=== PATIENT | male | born 1935 | race Caucasian/White ===

== ENCOUNTER 2017-07-02 16:52 | Inpatient (IN) | payer MEDICARE, OTHER ==
[~2017-07-02] VITALS: Ht 177.8 cm; Wt 93.0 kg
[2017-07-02 17:08] LABS: BASOPHILS % (AUTO) 0.5 % (0.0-5.0); EOSINOPHILS % (AUTO) 2.2 % (0.0-8.0); HEMATOCRIT 36.4 % (42-54); LYMPHOCYTES % (AUTO) 15.1 % (21.0-51.0); MEAN CORPUSCULAR HEMOGLOBIN 28.1 pg (27.0-33.0); MEAN CORPUSCULAR HGB CONC 32.9 g/dL (32.0-36.0); MEAN CORPUSCULAR VOLUME 85.6 fL (79-99); MONOCYTES % (AUTO) 6.7 % (3.0-13.0); NEUTROPHILS % (AUTO) 75.5 % (40.0-77.0); PLATELET COUNT (AUTO) 375 K/uL (130-400); RED BLOOD CELL COUNT(AUTO) 4.25 MIL/uL (4.50-6.20); RED CELL DISTRIBUTION WIDTH 14.7 % (11.0-15.5); WHITE BLOOD COUNT (AUTO) 16.2 K/uL (4.8-10.8)
[2017-07-02 17:25] LABS: CREATININE 1.3 mg/dL (0.5-1.5); POTASSIUM 3.5 mmol/L (3.5-5.1)
[2017-07-02 17:41] LABS: BILIRUBIN,TOTAL 0.5 mg/dL (0.2-1.0); TOTAL PROTEIN, SERUM 6.1 g/dL (6.0-8.3)
[2017-07-02 19:03] LABS: INR 1.1 (0.85-1.15); PARTIAL THROMBOPLASTIN TIME 26.6 SEC (26.3-35.5); PROTHROMBIN TIME 11.5 SEC (9.6-11.6)
[2017-07-02] MEDS ORDERED: ASPIRIN 81MG TAB.CHEW ONE (19:57)
[2017-07-02] MEDS ORDERED: NITROGLYCERIN 1GM/1 INCH PACKET TD ONE (21:47)
[2017-07-02] MEDS ORDERED: ENOXAPARIN SODIUM 40 MG/0.4 ML SYRINGE SQ ONE (22:14)
[2017-07-02 22:46] VITALS: BP 134/81
[2017-07-02] MEDS ORDERED: ACETAMINOPHEN 325 MG TAB PO PRN (23:00)
[2017-07-02] MEDS ORDERED: ONDANSETRON HCL 4 MG/2 ML VIAL IVP PRN (23:00)
[2017-07-02] MEDS: NITROGLYCERIN 30 GM TUBE TP SCH (23:00)
[2017-07-02 23:33] LABS: CREATINE KINASE MB 2.7 ng/mL (0.5-3.6); CREATINE KINASE, TOTAL 84 U/L (21-232); MYOGLOBIN 134 ng/mL (10-92); TROPONIN I < 0.04 ng/mL (0.00-0.06)
[2017-07-02] MEDS ORDERED: CEFTRIAXONE 1GM/D5W 50ML 50 ML IV SCH (23:45)
[2017-07-02] MEDS ORDERED: CEFTRIAXONE SODIUM 1 GM IVP SCH (23:45)
[2017-07-02 23:47] VITALS: BP 123/76
[2017-07-03 03:55] VITALS: BP 87/50
[2017-07-03] MEDS ORDERED: ONDANSETRON HCL MDV 20ML 2 MG/ML VIAL ONE (04:11)
[2017-07-03] MEDS: NITROGLYCERIN 30 GM TUBE TP SCH (05:00)
[2017-07-03 05:43] VITALS: BP 96/57
[2017-07-03 05:45] LABS: CREATINE KINASE MB 1.9 ng/mL (0.5-3.6); CREATINE KINASE, TOTAL 84 U/L (21-232); MYOGLOBIN 215 ng/mL (10-92); TROPONIN I < 0.04 ng/mL (0.00-0.06)
[2017-07-03 07:00] VITALS: BP 92/60
[2017-07-03] MEDS ORDERED: MECLIZINE HCL 25 MG TABLET PO PRN (08:30)
[2017-07-03] MEDS ORDERED: ONDANSETRON HCL MDV 20ML 2 MG/ML VIAL IVP PRN ×2 (08:45)
[2017-07-03] MEDS: FAMOTIDINE/PF 20 MG/2 ML VIAL IV SCH (08:46)
[2017-07-03] MEDS: ENOXAPARIN SODIUM 40 MG/0.4 ML SYRINGE SQ SCH (08:47)
[2017-07-03] MEDS: MECLIZINE HCL 25 MG TABLET PO SCH ×3 (08:47→20:06)
[2017-07-03 10:04] LABS: HEMATOCRIT 31.8 % (42-54); MEAN CORPUSCULAR HEMOGLOBIN 29.4 pg (27.0-33.0); MEAN CORPUSCULAR HGB CONC 34.4 g/dL (32.0-36.0); MEAN CORPUSCULAR VOLUME 85.5 fL (79-99); PLATELET COUNT (AUTO) 363 K/uL (130-400); RED BLOOD CELL COUNT(AUTO) 3.72 MIL/uL (4.50-6.20); RED CELL DISTRIBUTION WIDTH 14.3 % (11.0-15.5); WHITE BLOOD COUNT (AUTO) 19.5 K/uL (4.8-10.8)
[2017-07-03 11:00] VITALS: BP 112/64
[2017-07-03 11:02] LABS: CREATININE 1.7 mg/dL (0.5-1.5); POTASSIUM 4.3 mmol/L (3.5-5.1)
[2017-07-03 11:52] LABS: HEMATOCRIT 32.6 % (42-54); MEAN CORPUSCULAR HEMOGLOBIN 29.7 pg (27.0-33.0); MEAN CORPUSCULAR HGB CONC 34.1 g/dL (32.0-36.0); MEAN CORPUSCULAR VOLUME 86.9 fL (79-99); PLATELET COUNT (AUTO) 381 K/uL (130-400); RED BLOOD CELL COUNT(AUTO) 3.76 MIL/uL (4.50-6.20); RED CELL DISTRIBUTION WIDTH 14.5 % (11.0-15.5); WHITE BLOOD COUNT (AUTO) 22.7 K/uL (4.8-10.8)
[2017-07-03 13:00] LABS: BAND NEUTROPHILS % (MANUAL) 1 % (0-2); EOSINOPHILS % (MANUAL) 1 % (1-6); LYMPHOCYTES % (MANUAL) 12 % (22-44); MAN.DIFF COMMENT-IMPRESSION MANUAL DIFFERENTIAL; MONOCYTES % (MANUAL) 10 % (2-9); SEGMENTED NEUTROPHILS % 76 % (40-70)
[2017-07-03 13:01] LABS: PLATELET MORPHOLOGY COMMENT ADEQUATE
[2017-07-03 16:22] VITALS: BP 125/59
[2017-07-03 17:13] LABS: APPEARANCE,URINE Clear (CLEAR); BILIRUBIN,URINE Negative (NEGATIVE); COLOR,URINE Yellow (YELLOW); GLUCOSE, URINE (UA) Negative (NEGATIVE); KETONES,URINE Negative (NEGATIVE); LEUKOCYTE ESTERASE ,URINE Trace (NEGATIVE); NITRATE,URINE Negative (NEGATIVE); OCCULT BLOOD,URINE Negative (NEGATIVE); PROTEIN,URINE Negative (NEGATIVE)
[2017-07-03 17:34] LABS: BACTERIA,URINE Rare /HPF (None Seen); RBC,URINE None Seen /HPF (0-1); SQUAMOUS EPITHELIAL CELL,UR 0-2 /HPF (0-2); WBC,URINE 0-1 /HPF (0-1)
[2017-07-03 19:00] VITALS: BP 119/70
[2017-07-03] MEDS: CEFTRIAXONE SODIUM 1 GM IVP SCH (20:05)
[2017-07-03] MEDS: ATORVASTATIN CALCIUM 20 MG TABLET PO SCH (20:06)
[2017-07-04] VITALS: BP 109/73
[2017-07-04 04:00] VITALS: BP 122/62
[2017-07-04] MEDS: FAMOTIDINE/PF 20 MG/2 ML VIAL IV SCH (07:19)
[2017-07-04] MEDS: MECLIZINE HCL 25 MG TABLET PO SCH ×2 (07:19→19:37)
[2017-07-04] MEDS: ENOXAPARIN SODIUM 40 MG/0.4 ML SYRINGE SQ SCH (07:20)
[2017-07-04] MEDS: ASPIRIN 81MG TAB.CHEW PO SCH (07:20)
[2017-07-04] MEDS ORDERED: DILT240C94 PO (07:30)
[2017-07-04] MEDS ORDERED: BENA20TA3 PO (07:30)
[2017-07-04] MEDS ORDERED: LEVO100T12 PO (07:30)
[2017-07-04] MEDS ORDERED: ZONI25CA3 PO (07:30)
[2017-07-04] MEDS ORDERED: DULO60CA63 PO (07:30)
[2017-07-04] MEDS ORDERED: TRAZ-144 PO ×2 (07:30)
[2017-07-04 07:40] VITALS: BP 131/72
[2017-07-04] MEDS ORDERED: NITROGLYCERIN 0.4 MG SL TAB SL ONE (09:07)
[2017-07-04] MEDS ORDERED: NITROGLYCERIN 0.4 MG SL TAB SL PRN (09:15)
[2017-07-04 09:42] LABS: HEMATOCRIT 27.6 % (42-54); MEAN CORPUSCULAR HEMOGLOBIN 28.2 pg (27.0-33.0); MEAN CORPUSCULAR HGB CONC 32.7 g/dL (32.0-36.0); MEAN CORPUSCULAR VOLUME 86.3 fL (79-99); PLATELET COUNT (AUTO) 299 K/uL (130-400); RED CELL DISTRIBUTION WIDTH 14.3 % (11.0-15.5); WHITE BLOOD COUNT (AUTO) 15.9 K/uL (4.8-10.8)
[2017-07-04 09:57] LABS: CREATININE 1.3 mg/dL (0.5-1.5); POTASSIUM 4.1 mmol/L (3.5-5.1)
[2017-07-04 10:02] LABS: ALBUMIN 2.7 g/dL (3.5-5.0); BILIRUBIN,TOTAL 0.4 mg/dL (0.2-1.0); TOTAL PROTEIN, SERUM 5.5 g/dL (6.0-8.3)
[2017-07-04 11:30] VITALS: BP 112/55
[2017-07-04] MEDS ORDERED: DILTIAZEM HCL 120 MG CAP.SR.24H PO SCH (12:30)
[2017-07-04] MEDS ORDERED: LEVOTHYROXINE 100 MCG TABLET PO SCH (12:30)
[2017-07-04] MEDS: DULOXETINE HCL 30 MG CAP PO SCH ×2 (12:37→20:03)
[2017-07-04 16:41] VITALS: BP 121/54
[2017-07-04] MEDS: LEVOTHYROXINE 100 MCG TABLET PO SCH (19:36)
[2017-07-04] MEDS: CEFTRIAXONE SODIUM 1 GM IVP SCH (20:02)
[2017-07-04] MEDS: ATORVASTATIN CALCIUM 20 MG TABLET PO SCH (20:02)
[2017-07-04] MEDS: TRAZODONE HCL 50 MG TAB PO PRN (20:07)
[2017-07-04 23:20] VITALS: BP 125/98
[2017-07-05 03:35] VITALS: BP 124/58
[2017-07-05 04:41] LABS: HEMATOCRIT 25.5 % (42-54); MEAN CORPUSCULAR HEMOGLOBIN 29.5 pg (27.0-33.0); MEAN CORPUSCULAR HGB CONC 33.8 g/dL (32.0-36.0); MEAN CORPUSCULAR VOLUME 87.1 fL (79-99); PLATELET COUNT (AUTO) 300 K/uL (130-400); RED BLOOD CELL COUNT(AUTO) 2.92 MIL/uL (4.50-6.20); RED CELL DISTRIBUTION WIDTH 14.5 % (11.0-15.5); WHITE BLOOD COUNT (AUTO) 15.8 K/uL (4.8-10.8)
[2017-07-05 04:50] LABS: CREATININE 1.3 mg/dL (0.5-1.5); POTASSIUM 3.8 mmol/L (3.5-5.1)
[2017-07-05 07:38] VITALS: BP 125/62
[2017-07-05] MEDS ORDERED: FAMOTIDINE 20MG TAB 20 MG TAB PO SCH (09:00)
[2017-07-05] MEDS: MECLIZINE HCL 25 MG TABLET PO SCH ×2 (09:00→20:57)
[2017-07-05] MEDS: DULOXETINE HCL 30 MG CAP PO SCH ×2 (09:50→20:56)
[2017-07-05] MEDS: DILTIAZEM HCL 120 MG CAP.SR.24H PO SCH (09:51)
[2017-07-05] MEDS: ASPIRIN 81MG TAB.CHEW PO SCH (09:51)
[2017-07-05] MEDS: LEVOTHYROXINE 100 MCG TABLET PO SCH (09:51)
[2017-07-05] MEDS: ENOXAPARIN SODIUM 40 MG/0.4 ML SYRINGE SQ SCH (09:52)
[2017-07-05 11:18] VITALS: BP 112/50
[2017-07-05] MEDS: PANTOPRAZOLE SODIUM 40 MG TABLET.DR PO SCH (11:29)
[2017-07-05 16:20] VITALS: BP 123/56
[2017-07-05 19:44] VITALS: BP 124/61
[2017-07-05] MEDS: CEFTRIAXONE SODIUM 1 GM IVP SCH (20:56)
[2017-07-05] MEDS: TRAZODONE HCL 50 MG TAB PO PRN (20:56)
[2017-07-05] MEDS: ATORVASTATIN CALCIUM 20 MG TABLET PO SCH (20:56)
[2017-07-05 23:34] VITALS: BP 123/50
[2017-07-06] VITALS (7 sets, daily range): BP systolic 108–139; BP diastolic 57–67
[2017-07-06 04:58] LABS: HEMATOCRIT 22.9 % (42-54); MEAN CORPUSCULAR HEMOGLOBIN 28.5 pg (27.0-33.0); MEAN CORPUSCULAR HGB CONC 32.4 g/dL (32.0-36.0); MEAN CORPUSCULAR VOLUME 88.1 fL (79-99); PLATELET COUNT (AUTO) 273 K/uL (130-400); RED CELL DISTRIBUTION WIDTH 14.6 % (11.0-15.5); WHITE BLOOD COUNT (AUTO) 13.7 K/uL (4.8-10.8)
[2017-07-06 05:06] LABS: CREATININE 1.2 mg/dL (0.5-1.5)
[2017-07-06 05:14] LABS: BAND NEUTROPHILS % (MANUAL) 3 % (0-2); LYMPHOCYTES % (MANUAL) 19 % (22-44); MAN.DIFF COMMENT-IMPRESSION MANUAL DIFFERENTIAL; MONOCYTES % (MANUAL) 8 % (2-9); PLATELET MORPHOLOGY COMMENT ADEQUATE; SEGMENTED NEUTROPHILS % 70 % (40-70)
[2017-07-06] MEDS: LEVOTHYROXINE 100 MCG TABLET PO SCH (05:45)
[2017-07-06] MEDS: MECLIZINE HCL 25 MG TABLET PO SCH ×2 (09:45→20:54)
[2017-07-06] MEDS: ASPIRIN 81MG TAB.CHEW PO SCH (09:45)
[2017-07-06] MEDS: DULOXETINE HCL 30 MG CAP PO SCH ×2 (09:45→20:54)
[2017-07-06] MEDS: DILTIAZEM HCL 120 MG CAP.SR.24H PO SCH (09:45)
[2017-07-06] MEDS: PANTOPRAZOLE SODIUM 40 MG TABLET.DR PO SCH (09:45)
[2017-07-06] MEDS: ATORVASTATIN CALCIUM 20 MG TABLET PO SCH (20:54)
[2017-07-06] MEDS: CEFTRIAXONE SODIUM 1 GM IVP SCH (20:54)
[2017-07-07] VITALS (21 sets, daily range): BP systolic 108–145; BP diastolic 58–85
[2017-07-07 04:56] LABS: MEAN CORPUSCULAR HEMOGLOBIN 29.7 pg (27.0-33.0); MEAN CORPUSCULAR HGB CONC 33.6 g/dL (32.0-36.0); MEAN CORPUSCULAR VOLUME 88.5 fL (79-99); PLATELET COUNT (AUTO) 304 K/uL (130-400); RED BLOOD CELL COUNT(AUTO) 2.35 MIL/uL (4.50-6.20); RED CELL DISTRIBUTION WIDTH 14.7 % (11.0-15.5); WHITE BLOOD COUNT (AUTO) 17.1 K/uL (4.8-10.8)
[2017-07-07 04:58] LABS: CREATININE 1.2 mg/dL (0.5-1.5)
[2017-07-07 05:35] LABS: HEMATOCRIT 20.8 % (42-54)
[2017-07-07 05:47] LABS: BASOPHILS % (MANUAL) 1 % (0-2); EOSINOPHILS % (MANUAL) 3 % (1-6); LYMPHOCYTES % (MANUAL) 13 % (22-44); MONOCYTES % (MANUAL) 4 % (2-9); SEGMENTED NEUTROPHILS % 79 % (40-70)
[2017-07-07 05:48] LABS: MAN.DIFF COMMENT-IMPRESSION MANUAL DIFFERENTIAL; PLATELET MORPHOLOGY COMMENT ADEQUATE
[2017-07-07] MEDS: LEVOTHYROXINE 100 MCG TABLET PO SCH (06:11)
[2017-07-07] MEDS: PANTOPRAZOLE SODIUM 40 MG TABLET.DR PO SCH (06:11)
[2017-07-07] MEDS: DILTIAZEM HCL 120 MG CAP.SR.24H PO SCH (17:13)
[2017-07-07] MEDS: DULOXETINE HCL 30 MG CAP PO SCH ×2 (17:13→20:56)
[2017-07-07] MEDS: MECLIZINE HCL 25 MG TABLET PO SCH ×2 (17:13→20:56)
[2017-07-07] MEDS: ATORVASTATIN CALCIUM 20 MG TABLET PO SCH (20:55)
[2017-07-07] MEDS: CEFTRIAXONE SODIUM 1 GM IVP SCH (20:56)
[2017-07-07] MEDS: TRAZODONE HCL 50 MG TAB PO PRN (21:03)
[2017-07-08 03:48] VITALS: BP 124/66
[2017-07-08 04:27] LABS: MEAN CORPUSCULAR HEMOGLOBIN 29.8 pg (27.0-33.0); MEAN CORPUSCULAR HGB CONC 33.8 g/dL (32.0-36.0); MEAN CORPUSCULAR VOLUME 88.1 fL (79-99); PLATELET COUNT (AUTO) 311 K/uL (130-400); RED BLOOD CELL COUNT(AUTO) 2.25 MIL/uL (4.50-6.20); RED CELL DISTRIBUTION WIDTH 15.6 % (11.0-15.5); WHITE BLOOD COUNT (AUTO) 14.7 K/uL (4.8-10.8)
[2017-07-08 04:35] LABS: HEMATOCRIT 19.9 % (42-54)
[2017-07-08 04:37] LABS: CREATININE 1.1 mg/dL (0.5-1.5); MAGNESIUM 1.9 mg/dL (1.80-2.40); POTASSIUM 3.7 mmol/L (3.5-5.1)
[2017-07-08] MEDS ORDERED: SODIUM CHLORIDE 0.9% 250 ML IV ONE (05:28)
[2017-07-08] MEDS: PANTOPRAZOLE SODIUM 40 MG TABLET.DR PO SCH (06:04)
[2017-07-08] MEDS: LEVOTHYROXINE 100 MCG TABLET PO SCH (06:04)
[2017-07-08 07:45] VITALS: BP 130/69
[2017-07-08] MEDS: DULOXETINE HCL 30 MG CAP PO SCH (07:51)
[2017-07-08] MEDS: DILTIAZEM HCL 120 MG CAP.SR.24H PO SCH (07:51)
[2017-07-08] MEDS: MECLIZINE HCL 25 MG TABLET PO SCH (07:51)
[2017-07-08 11:35] VITALS: BP 135/71
[2017-07-08 14:52] LABS: BASOPHILS % (AUTO) 0.4 % (0.0-5.0); EOSINOPHILS % (AUTO) 4.5 % (0.0-8.0); HEMATOCRIT 26.7 % (42-54); LYMPHOCYTES % (AUTO) 13.2 % (21.0-51.0); MEAN CORPUSCULAR HEMOGLOBIN 29.2 pg (27.0-33.0); MEAN CORPUSCULAR HGB CONC 33.1 g/dL (32.0-36.0); MEAN CORPUSCULAR VOLUME 88.3 fL (79-99); MONOCYTES % (AUTO) 5.5 % (3.0-13.0); NEUTROPHILS % (AUTO) 76.4 % (40.0-77.0); NUCLEATED RED BLOOD CELLS 0.1 % (0.0-0.19); PLATELET COUNT (AUTO) 336 K/uL (130-400); RED BLOOD CELL COUNT(AUTO) 3.02 MIL/uL (4.50-6.20); RED CELL DISTRIBUTION WIDTH 15.6 % (11.0-15.5); WHITE BLOOD COUNT (AUTO) 15.3 K/uL (4.8-10.8)
[2017-07-08 16:26] VITALS: BP 129/67
== END 2017-07-08 17:40 | disposition home or self-care (01) | DRG 377 ==
LOC: EDH 16:52 → EDHIP 19:10 → 2AH 22:09
PROVIDERS: ADMIT Internal Medicine Nephrology; ATTEND Internal Medicine Nephrology
PROC: 0DB98ZX Excision of Duodenum, Via Natural or Artificial Opening Endoscopic, Diagnostic (ICD-10-PCS; principal; 2017-07-07)
PROC: 0W3P8ZZ Control Bleeding in Gastrointestinal Tract, Via Natural or Artificial Opening Endoscopic (ICD-10-PCS; 2017-07-07)
PROC: 30233N1 Transfusion of Nonautologous Red Blood Cells into Peripheral Vein, Percutaneous Approach (ICD-10-PCS; 2017-07-07)
DX: K31.82 Dieulafoy lesion (hemorrhagic) of stomach and duodenum (principal); N17.0 Acute kidney failure with tubular necrosis; G91.2 (Idiopathic) normal pressure hydrocephalus; I24.9 Acute ischemic heart disease, unspecified; D62 Acute posthemorrhagic anemia; I42.9 Cardiomyopathy, unspecified; K25.4 Chronic or unspecified gastric ulcer with hemorrhage; D72.829 Elevated white blood cell count, unspecified; E03.9 Hypothyroidism, unspecified; E78.5 Hyperlipidemia, unspecified; F32.9 Major depressive disorder, single episode, unspecified; I10 Essential (primary) hypertension; I25.10 Atherosclerotic heart disease of native coronary artery without angina pectoris; K80.20 Calculus of gallbladder without cholecystitis without obstruction; N40.0 Benign prostatic hyperplasia without lower urinary tract symptoms; K25.9 Gastric ulcer, unspecified as acute or chronic, without hemorrhage or perforation; Z72.0 Tobacco use; Z79.82 Long term (current) use of aspirin; Z79.899 Other long term (current) drug therapy; Z85.820 Personal history of malignant melanoma of skin; Z91.81 History of falling; Z95.5 Presence of coronary angioplasty implant and graft; Z96.612 Presence of left artificial shoulder joint; Z88.8 Allergy status to other drugs, medicaments and biological substances
CPT/HCPCS: 36415; 71045; 71250; 76700; 76775; 78226; 80048; 80053; 81001; 82150; 82270; 82550; 82553; 82948; 83690; 83735; 83874; 84484; 85025; 85027; 85610; 85730; 86850; 86900; 86901; 86922; 87040; 88305; 93005; 93306; A4218; A9537; J0696; J1650; J3490; J7030; P9016

== ENCOUNTER 2017-07-23 18:48 | Inpatient (IN) | payer OTHER ==
[~2017-07-23] VITALS: Ht 177.8 cm; Wt 94.7 kg
[~2017-07-23 18:48] MED LIST: BENA20TA10 PO; DILT240C94 PO; DULO60CA63 PO; LEVO100T12 PO; TRAZ-185 PO; ZONI25CA3 PO
[2017-07-23] MEDS ORDERED: DiphenhydrAMINE HCL 50 MG/ML VIAL ONE (19:01)
[2017-07-23] MEDS ORDERED: METHYLPREDNISOLONE SOD SUCC 125MG/2ML VIAL ONE (19:01)
[2017-07-23 19:08] LABS: BASOPHILS % (AUTO) 0.7 % (0.0-5.0); EOSINOPHILS % (AUTO) 4.6 % (0.0-8.0); HEMATOCRIT 28.6 % (42-54); MEAN CORPUSCULAR HEMOGLOBIN 29.1 pg (27.0-33.0); MEAN CORPUSCULAR HGB CONC 35.5 g/dL (32.0-36.0); MEAN CORPUSCULAR VOLUME 82.1 fL (79-99); MONOCYTES % (AUTO) 9.6 % (3.0-13.0); NEUTROPHILS % (AUTO) 64.1 % (40.0-77.0); PLATELET COUNT (AUTO) 525 K/uL (130-400); RED BLOOD CELL COUNT(AUTO) 3.49 MIL/uL (4.50-6.20); RED CELL DISTRIBUTION WIDTH 18.4 % (11.0-15.5); WHITE BLOOD COUNT (AUTO) 12.9 K/uL (4.8-10.8)
[2017-07-23] MEDS ORDERED: FAMOTIDINE 20MG TAB 20 MG TAB ONE (19:08)
[2017-07-23] MEDS ORDERED: HEPARIN SODIUM 1000UNIT/ML 10ML VIAL ONE (19:19)
[2017-07-23] MEDS ORDERED: NITROGLYCERIN 5 MG/ML 10 ML VIAL IV ONE (19:19)
[2017-07-23] MEDS ORDERED: IOPAMIDOL-370 100 ML VIAL IV ONE ×2 (19:19→20:35)
[2017-07-23] MEDS ORDERED: LIDOCAINE HCL 2% 20ML ONE (19:20)
[2017-07-23] MEDS ORDERED: ISOVUE-370 50ML VIAL IV ONE (19:20)
[2017-07-23] MEDS ORDERED: DOPAMINE HCL 400 MG/D5%-WATER 0 ML IV ONE (19:20)
[2017-07-23] MEDS ORDERED: ATROPINE SULFATE 0.1 MG/ML 10 ML SYG IVP ONE (19:20)
[2017-07-23 19:24] LABS: CREATININE 1.2 mg/dL (0.5-1.5); POTASSIUM 3.5 mmol/L (3.5-5.1)
[2017-07-23 19:37] LABS: ALBUMIN 3.5 g/dL (3.5-5.0); BILIRUBIN,TOTAL 0.4 mg/dL (0.2-1.0); CREATINE KINASE MB 2.1 ng/mL (0.5-3.6); TOTAL PROTEIN, SERUM 7.1 g/dL (6.0-8.3)
[2017-07-23 19:56] LABS: INR 1.06 (0.85-1.15); PARTIAL THROMBOPLASTIN TIME 22.3 SEC (26.3-35.5); PROTHROMBIN TIME 10.9 SEC (9.6-11.6)
[2017-07-23] MEDS ORDERED: CLOPIDOGREL BISULFATE 300 MG TAB ONE (20:09)
[2017-07-23] MEDS ORDERED: NITROGLYCERIN 0.4 MG SL TAB SL ONE (20:33)
[2017-07-23] MEDS ORDERED: MORPHINE SULFATE 4 MG/1ML SYG ONE (21:01)
[2017-07-23] MEDS ORDERED: CLOP75TA14 PO (21:12)
[2017-07-23] MEDS ORDERED: ATOR20TA65 PO (21:12)
[2017-07-23] MEDS ORDERED: METO25TA6 PO (21:12)
[2017-07-23] MEDS ORDERED: MORPHINE SULFATE 4 MG/1ML SYG IVP SCH (21:15)
[2017-07-23] MEDS ORDERED: TEMAZEPAM 30 MG CAP PO PRN (21:15)
[2017-07-23] MEDS ORDERED: ACETAMINOPHEN-CODEINE 300/30MG TAB PO PRN ×2 (21:15)
[2017-07-23] MEDS ORDERED: ONDANSETRON HCL MDV 20ML 2 MG/ML VIAL IVP PRN (21:15)
[2017-07-23] MEDS ORDERED: ONDANSETRON HCL MDV 20ML 2 MG/ML VIAL IVP SCH (21:15)
[2017-07-23] MEDS ORDERED: MORPHINE SULFATE 5 MG/ML VIAL IVP SCH (21:15)
[2017-07-23] MEDS ORDERED: ESOM20CA31 PO (21:52)
[2017-07-23 22:00] VITALS: BP 128/70
[2017-07-23 22:15] VITALS: BP 136/71
[2017-07-23 22:30] VITALS: BP 114/66
[2017-07-23 22:45] VITALS: BP 135/66
[2017-07-23 23:00] VITALS: BP 127/82
[2017-07-23 23:05] VITALS: BP 136/71
[2017-07-23 23:28] LABS: HEMATOCRIT 29.4 % (42-54); MEAN CORPUSCULAR HEMOGLOBIN 26.5 pg (27.0-33.0); MEAN CORPUSCULAR HGB CONC 32.3 g/dL (32.0-36.0); MEAN CORPUSCULAR VOLUME 81.8 fL (79-99); PLATELET COUNT (AUTO) 406 K/uL (130-400); RED CELL DISTRIBUTION WIDTH 17.9 % (11.0-15.5); WHITE BLOOD COUNT (AUTO) 15.9 K/uL (4.8-10.8)
[2017-07-24] VITALS (38 sets, daily range): BP systolic 124–166; BP diastolic 61–115
[2017-07-24] MEDS ORDERED: ATROPINE SULFATE 0.1 MG/ML 10 ML SYG IVP ONE (02:41)
[2017-07-24 05:02] LABS: HEMATOCRIT 30.6 % (42-54); MEAN CORPUSCULAR HEMOGLOBIN 26.5 pg (27.0-33.0); MEAN CORPUSCULAR HGB CONC 32.4 g/dL (32.0-36.0); MEAN CORPUSCULAR VOLUME 81.8 fL (79-99); PLATELET COUNT (AUTO) 462 K/uL (130-400); RED BLOOD CELL COUNT(AUTO) 3.74 MIL/uL (4.50-6.20); RED CELL DISTRIBUTION WIDTH 18.5 % (11.0-15.5); WHITE BLOOD COUNT (AUTO) 14.7 K/uL (4.8-10.8)
[2017-07-24 05:13] LABS: CREATININE 1.1 mg/dL (0.5-1.5); POTASSIUM 4.6 mmol/L (3.5-5.1)
[2017-07-24] MEDS ORDERED: TRAZODONE HCL 50 MG TAB PO PRN (08:00)
[2017-07-24] MEDS: DULOXETINE HCL 30 MG CAP PO SCH ×2 (08:36→21:19)
[2017-07-24] MEDS: PANTOPRAZOLE SODIUM 40 MG TABLET.DR PO SCH (08:36)
[2017-07-24] MEDS: ASPIRIN 81MG TAB.CHEW PO SCH (08:36)
[2017-07-24] MEDS: CLOPIDOGREL BISULFATE 75 MG TAB PO SCH (08:36)
[2017-07-24] MEDS: METOPROLOL TARTRATE 50 MG TAB PO SCH ×2 (08:36→21:19)
[2017-07-24] MEDS: ZONISAMIDE 25 MG PO SCH ×3 (09:00→21:00)
[2017-07-24] MEDS ORDERED: METOPROLOL TARTRATE 25 MG TAB PO SCH (09:00)
[2017-07-24] MEDS ORDERED: ATORVASTATIN CALCIUM 20 MG TABLET PO SCH (21:00)
[2017-07-25 03:47] VITALS: BP 136/77
[2017-07-25 04:57] LABS: HEMATOCRIT 27.8 % (42-54); MEAN CORPUSCULAR HEMOGLOBIN 27.3 pg (27.0-33.0); MEAN CORPUSCULAR HGB CONC 33.6 g/dL (32.0-36.0); MEAN CORPUSCULAR VOLUME 81.2 fL (79-99); PLATELET COUNT (AUTO) 493 K/uL (130-400); RED BLOOD CELL COUNT(AUTO) 3.43 MIL/uL (4.50-6.20); RED CELL DISTRIBUTION WIDTH 18.5 % (11.0-15.5); WHITE BLOOD COUNT (AUTO) 26.6 K/uL (4.8-10.8)
[2017-07-25 05:14] LABS: CREATININE 1.2 mg/dL (0.5-1.5); POTASSIUM 3.7 mmol/L (3.5-5.1)
[2017-07-25] MEDS ORDERED: LEVOTHYROXINE 100 MCG TABLET PO SCH (06:30)
[2017-07-25 07:00] VITALS: BP 141/74
[2017-07-25] MEDS: METOPROLOL TARTRATE 50 MG TAB PO SCH (08:42)
[2017-07-25] MEDS: DULOXETINE HCL 30 MG CAP PO SCH (08:42)
[2017-07-25] MEDS: ASPIRIN 81MG TAB.CHEW PO SCH (08:42)
[2017-07-25] MEDS: CLOPIDOGREL BISULFATE 75 MG TAB PO SCH (08:42)
[2017-07-25] MEDS: PANTOPRAZOLE SODIUM 40 MG TABLET.DR PO SCH (08:42)
[2017-07-25] MEDS: ZONISAMIDE 25 MG PO SCH (08:46)
[2017-07-25] MEDS ORDERED: ASPI-1005 PO (10:23)
[2017-07-25 10:55] LABS: APPEARANCE,URINE CLEAR (CLEAR); BILIRUBIN,URINE NEGATIVE (NEGATIVE); COLOR,URINE YELLOW (YELLOW); GLUCOSE, URINE (UA) NEGATIVE (NEGATIVE); KETONES,URINE NEGATIVE (NEGATIVE); LEUKOCYTE ESTERASE ,URINE TRACE (NEGATIVE); NITRATE,URINE NEGATIVE (NEGATIVE); OCCULT BLOOD,URINE NEGATIVE (NEGATIVE); PROTEIN,URINE NEGATIVE (NEGATIVE); UROBILINOGEN,URINE 0.2 mg/dL (0.2-1.0)
[2017-07-25 11:00] VITALS: BP 124/65
[2017-07-25 11:19] LABS: BACTERIA,URINE Rare /HPF (None Seen); MUCUS,URINE Few LPF (None Seen); RBC,URINE None Seen /HPF (0-1); SQUAMOUS EPITHELIAL CELL,UR Few /HPF (0-2); WBC,URINE 0-1 /HPF (0-1)
[2017-07-26] MEDS ORDERED: BENAZEPRIL HCL 10 MG TABLET PO SCH (09:00)
== END 2017-07-25 13:30 | disposition home or self-care (01) | DRG 246 ==
LOC: EDH 18:48 → EDHIP 19:00 → 2CH 21:51 → 2AH 07-24 14:30
PROVIDERS: ADMIT Internal Medicine; ATTEND Internal Medicine
PROC: 027034Z Dilation of Coronary Artery, One Artery with Drug-eluting Intraluminal Device, Percutaneous Approach (ICD-10-PCS; principal; 2017-07-23)
PROC: B2151ZZ Fluoroscopy of Left Heart using Low Osmolar Contrast (ICD-10-PCS; 2017-07-23)
PROC: B2111ZZ Fluoroscopy of Multiple Coronary Arteries using Low Osmolar Contrast (ICD-10-PCS; 2017-07-23)
PROC: 4A023N7 Measurement of Cardiac Sampling and Pressure, Left Heart, Percutaneous Approach (ICD-10-PCS; 2017-07-23)
DX: I21.19 ST elevation (STEMI) myocardial infarction involving other coronary artery of inferior wall (principal); I50.33 Acute on chronic diastolic (congestive) heart failure; E03.9 Hypothyroidism, unspecified; E78.5 Hyperlipidemia, unspecified; F32.9 Major depressive disorder, single episode, unspecified; I10 Essential (primary) hypertension; I25.10 Atherosclerotic heart disease of native coronary artery without angina pectoris; Z96.612 Presence of left artificial shoulder joint; I25.2 Old myocardial infarction; Z79.02 Long term (current) use of antithrombotics/antiplatelets; Z79.82 Long term (current) use of aspirin; Z79.899 Other long term (current) drug therapy; Z91.041 Radiographic dye allergy status; Z85.820 Personal history of malignant melanoma of skin; Z88.8 Allergy status to other drugs, medicaments and biological substances; Z82.49 Family history of ischemic heart disease and other diseases of the circulatory system
CPT/HCPCS: 36415; 71045; 71046; 80048; 80053; 80061; 81001; 82550; 82553; 83874; 84484; 85025; 85027; 85347; 85610; 85730; 86850; 86900; 86901; 93005; 93306; 93458; 94760; C1725; C1769; C1887; C1894; C9600; C9606; J0461; J1200; J1265; J1644; J2270; J2930; J3490; Q9967

== ENCOUNTER 2018-01-03 04:08 | Inpatient (IN) | payer OTHER ==
[~2018-01-03] VITALS: Ht 177.8 cm; Wt 92.9 kg
[~2018-01-03 04:08] MED LIST changes: +ASPI-1005 PO; +ATOR20TA65 PO; +CLOP75TA14 PO; -DILT240C94 PO; +ESOM20CA31 PO; +METO25TA6 PO
[2018-01-03] MEDS ORDERED: NITROGLYCERIN 1GM/1 INCH PACKET TD ONE (04:35)
[2018-01-03 04:52] LABS: BASOPHILS % (AUTO) 0.4 % (0.0-5.0); EOSINOPHILS % (AUTO) 5.5 % (0.0-8.0); HEMATOCRIT 35.2 % (42-54); LYMPHOCYTES % (AUTO) 9.3 % (21.0-51.0); MEAN CORPUSCULAR HEMOGLOBIN 20.6 pg (27.0-33.0); MEAN CORPUSCULAR HGB CONC 30.1 g/dL (32.0-36.0); MEAN CORPUSCULAR VOLUME 68.6 fL (79-99); MONOCYTES % (AUTO) 6.4 % (3.0-13.0); NEUTROPHILS % (AUTO) 78.4 % (40.0-77.0); NUCLEATED RED BLOOD CELLS 0.1 % (0.0-0.19); PLATELET COUNT (AUTO) 263 K/uL (130-400); RED BLOOD CELL COUNT(AUTO) 5.13 MIL/uL (4.50-6.20); RED CELL DISTRIBUTION WIDTH 22.3 % (11.0-15.5); WHITE BLOOD COUNT (AUTO) 13.8 K/uL (4.8-10.8)
[2018-01-03 05:01] LABS: CREATININE 1.3 mg/dL (0.5-1.5)
[2018-01-03 05:06] LABS: INR 1.16 (0.85-1.15); PARTIAL THROMBOPLASTIN TIME 25.8 SEC (26.3-35.5); PROTHROMBIN TIME 12.1 SEC (9.6-11.6)
[2018-01-03 05:17] LABS: BILIRUBIN,TOTAL 0.5 mg/dL (0.2-1.0); CREATINE KINASE MB 2.8 ng/mL (0.5-3.6); TOTAL PROTEIN, SERUM 6.4 g/dL (6.0-8.3)
[2018-01-03 08:00] VITALS: BP 145/81
[2018-01-03] MEDS: NITROGLYCERIN 1GM/1 INCH PACKET TD SCH ×2 (08:15→16:32)
[2018-01-03] MEDS ORDERED: MORPHINE SULFATE 2 MG/ML 1ML SYG IV PRN (08:15)
[2018-01-03] MEDS ORDERED: TRAZODONE HCL 50 MG TAB PO PRN (08:15)
[2018-01-03] MEDS ORDERED: CLOTRIMAZOLE 30 GM CREAM.GM. TP SCH (08:15)
[2018-01-03] MEDS: DULOXETINE HCL 30 MG CAP PO SCH ×2 (08:43→19:55)
[2018-01-03] MEDS: ASPIRIN 81MG TAB.CHEW PO SCH (08:43)
[2018-01-03] MEDS: PANTOPRAZOLE SODIUM 40 MG TABLET.DR PO SCH (08:43)
[2018-01-03] MEDS: METOPROLOL TARTRATE 25 MG TAB PO SCH ×2 (08:43→19:57)
[2018-01-03] MEDS: CLOPIDOGREL BISULFATE 75 MG TAB PO SCH (08:43)
[2018-01-03] MEDS: Zonisamide 25 MG PO SCH ×3 (08:44→19:56)
[2018-01-03] MEDS: SODIUM CHLORIDE 0.9% 1000ML 1,000 ML IV SCH ×2 (08:44→19:56)
[2018-01-03] MEDS: ENOXAPARIN SODIUM 40 MG/0.4 ML SYRINGE SQ SCH ×2 (08:44→19:57)
[2018-01-03 11:16] LABS: APPEARANCE,URINE Clear (CLEAR); BILIRUBIN,URINE Negative (NEGATIVE); COLOR,URINE Yellow (YELLOW); GLUCOSE, URINE (UA) 250 mg/dL (NEGATIVE); KETONES,URINE Negative (NEGATIVE); LEUKOCYTE ESTERASE ,URINE Negative (NEGATIVE); NITRATE,URINE Negative (NEGATIVE); OCCULT BLOOD,URINE Negative (NEGATIVE); PROTEIN,URINE Negative (NEGATIVE)
[2018-01-03 11:49] LABS: BACTERIA,URINE Rare /HPF (None Seen); RBC,URINE 0-1 /HPF (0-1); SQUAMOUS EPITHELIAL CELL,UR 0-2 /HPF (0-2); WBC,URINE None Seen /HPF (0-1)
[2018-01-03 12:00] VITALS: BP 142/80
[2018-01-03] MEDS ORDERED: ACETAMINOPHEN EXTRA STRENGTH 500 MG TABLET PO PRN (13:45)
[2018-01-03] MEDS ORDERED: BUTALB/ACETAMINOPHEN/CAFFEINE 1 EACH TABLET PO PRN (13:45)
[2018-01-03 16:00] VITALS: BP 132/59
[2018-01-03] MEDS ORDERED: GABA-531 PO (16:39)
[2018-01-03 19:00] VITALS: BP 153/90
[2018-01-03] MEDS: ATORVASTATIN CALCIUM 20 MG TABLET PO SCH (19:55)
[2018-01-03] MEDS: GABAPENTIN 300 MG CAPSULE PO SCH (19:55)
[2018-01-04] VITALS (7 sets, daily range): BP systolic 129–145; BP diastolic 72–90
[2018-01-04] MEDS: NITROGLYCERIN 1GM/1 INCH PACKET TD SCH ×3 (00:43→23:58)
[2018-01-04 05:18] LABS: BASOPHILS % (AUTO) 0.6 % (0.0-5.0); EOSINOPHILS % (AUTO) 7.4 % (0.0-8.0); HEMATOCRIT 32.8 % (42-54); LYMPHOCYTES % (AUTO) 10.7 % (21.0-51.0); MEAN CORPUSCULAR HEMOGLOBIN 21.2 pg (27.0-33.0); MEAN CORPUSCULAR HGB CONC 31.1 g/dL (32.0-36.0); MEAN CORPUSCULAR VOLUME 68.3 fL (79-99); MONOCYTES % (AUTO) 5.7 % (3.0-13.0); NEUTROPHILS % (AUTO) 75.6 % (40.0-77.0); PLATELET COUNT (AUTO) 277 K/uL (130-400); RED BLOOD CELL COUNT(AUTO) 4.81 MIL/uL (4.50-6.20); RED CELL DISTRIBUTION WIDTH 22.4 % (11.0-15.5); WHITE BLOOD COUNT (AUTO) 13.8 K/uL (4.8-10.8)
[2018-01-04 05:25] LABS: HEMOGLOBIN A1C 7.9 % (4.0-6.0)
[2018-01-04 05:31] LABS: ALBUMIN 2.9 g/dL (3.5-5.0); BILIRUBIN,DIRECT 0.2 mg/dL (0.0-0.3); BILIRUBIN,TOTAL 0.7 mg/dL (0.2-1.0); CREATININE 1.2 mg/dL (0.5-1.5); MAGNESIUM 1.9 mg/dL (1.80-2.40); POTASSIUM 3.8 mmol/L (3.5-5.1)
[2018-01-04 05:33] LABS: % IRON SATURATION 6.6 % (30-44)
[2018-01-04 05:35] LABS: B-TYPE NATRIURETIC PEPTIDE 145 pg/mL (0-100)
[2018-01-04] MEDS: LEVOTHYROXINE 100 MCG TABLET PO SCH (05:45)
[2018-01-04] MEDS: Zonisamide 25 MG PO SCH ×3 (09:00→20:34)
[2018-01-04] MEDS: ENOXAPARIN SODIUM 40 MG/0.4 ML SYRINGE SQ SCH ×2 (09:06→20:34)
[2018-01-04] MEDS: ASPIRIN 81MG TAB.CHEW PO SCH (09:07)
[2018-01-04] MEDS: GABAPENTIN 300 MG CAPSULE PO SCH ×2 (09:07→20:32)
[2018-01-04] MEDS: CLOPIDOGREL BISULFATE 75 MG TAB PO SCH (09:07)
[2018-01-04] MEDS: PANTOPRAZOLE SODIUM 40 MG TABLET.DR PO SCH (09:07)
[2018-01-04] MEDS: DULOXETINE HCL 30 MG CAP PO SCH ×2 (09:08→20:31)
[2018-01-04] MEDS: METOPROLOL TARTRATE 25 MG TAB PO SCH ×2 (09:08→20:31)
[2018-01-04] MEDS ORDERED: PREDNISONE 20 MG TABLET PO SCH ×2 (19:00→23:59)
[2018-01-04] MEDS ORDERED: FAMOTIDINE 20MG TAB 20 MG TAB PO SCH ×2 (19:00→23:59)
[2018-01-04] MEDS: ATORVASTATIN CALCIUM 20 MG TABLET PO SCH (20:32)
[2018-01-04] MEDS ORDERED: DIPHENHYDRAMINE HCL 25 MG CAPSULE PO SCH (21:00)
[2018-01-04 23:06] LABS: APPEARANCE,URINE Clear (CLEAR); BILIRUBIN,URINE Negative (NEGATIVE); COLOR,URINE Yellow (YELLOW); GLUCOSE, URINE (UA) Negative (NEGATIVE); KETONES,URINE Negative (NEGATIVE); LEUKOCYTE ESTERASE ,URINE Negative (NEGATIVE); NITRATE,URINE Negative (NEGATIVE); OCCULT BLOOD,URINE Negative (NEGATIVE); PH,URINE 7.5 (5.0-8.0); PROTEIN,URINE Negative (NEGATIVE)
[2018-01-05] VITALS (10 sets, daily range): BP systolic 136–159; BP diastolic 73–96
[2018-01-05 04:38] LABS: MEAN CORPUSCULAR HEMOGLOBIN 20.5 pg (27.0-33.0); MEAN CORPUSCULAR HGB CONC 29.6 g/dL (32.0-36.0); MEAN CORPUSCULAR VOLUME 69.1 fL (79-99); PLATELET COUNT (AUTO) 271 K/uL (130-400); RED CELL DISTRIBUTION WIDTH 22.6 % (11.0-15.5); WHITE BLOOD COUNT (AUTO) 14.7 K/uL (4.8-10.8)
[2018-01-05 04:46] LABS: INR 1.18 (0.85-1.15); PARTIAL THROMBOPLASTIN TIME 34.7 SEC (26.3-35.5); PROTHROMBIN TIME 12.3 SEC (9.6-11.6)
[2018-01-05 04:55] LABS: ALBUMIN 3.2 g/dL (3.5-5.0); BILIRUBIN,TOTAL 0.9 mg/dL (0.2-1.0); CREATININE 1.2 mg/dL (0.5-1.5); POTASSIUM 4.3 mmol/L (3.5-5.1); TOTAL PROTEIN, SERUM 6.7 g/dL (6.0-8.3)
[2018-01-05] MEDS ORDERED: DIPHENHYDRAMINE HCL 25 MG CAPSULE PO SCH (06:00)
[2018-01-05] MEDS ORDERED: FAMOTIDINE 20MG TAB 20 MG TAB PO SCH (06:00)
[2018-01-05] MEDS ORDERED: PREDNISONE 20 MG TABLET PO SCH (06:00)
[2018-01-05] MEDS: METOPROLOL TARTRATE 25 MG TAB PO SCH ×2 (06:01→20:24)
[2018-01-05] MEDS: LEVOTHYROXINE 100 MCG TABLET PO SCH (06:01)
[2018-01-05] MEDS: NITROGLYCERIN 1GM/1 INCH PACKET TD SCH (08:15)
[2018-01-05] MEDS: DULOXETINE HCL 30 MG CAP PO SCH ×2 (09:00→20:24)
[2018-01-05] MEDS: ASPIRIN 81MG TAB.CHEW PO SCH (09:00)
[2018-01-05] MEDS: Zonisamide 25 MG PO SCH ×3 (09:00→20:24)
[2018-01-05] MEDS: CLOPIDOGREL BISULFATE 75 MG TAB PO SCH (09:00)
[2018-01-05] MEDS: GABAPENTIN 300 MG CAPSULE PO SCH ×2 (09:00→20:24)
[2018-01-05] MEDS: PANTOPRAZOLE SODIUM 40 MG TABLET.DR PO SCH (09:00)
[2018-01-05] MEDS ORDERED: LIDOCAINE HCL-MPF 2% 5ML VIAL ONE (12:46)
[2018-01-05] MEDS ORDERED: HEPARIN SODIUM 1000UNIT/ML 10ML VIAL ONE (12:47)
[2018-01-05] MEDS ORDERED: IOHEXOL-350 50ML VIAL IV ONE (12:47)
[2018-01-05] MEDS ORDERED: IOHEXOL 350 MG/ML 100ML INFUS..BTL IV ONE (12:47)
[2018-01-05] MEDS ORDERED: METHYLPREDNISOLONE SOD SUCC 125MG/2ML VIAL ONE (14:24)
[2018-01-05] MEDS: ATORVASTATIN CALCIUM 20 MG TABLET PO SCH (20:24)
[2018-01-06] MEDS: NITROGLYCERIN 1GM/1 INCH PACKET TD SCH (00:07)
[2018-01-06 04:10] VITALS: BP 99/70
[2018-01-06 04:57] LABS: BASOPHILS % (AUTO) 0.2 % (0.0-5.0); HEMATOCRIT 35.9 % (42-54); LYMPHOCYTES % (AUTO) 4.7 % (21.0-51.0); MEAN CORPUSCULAR HEMOGLOBIN 21.3 pg (27.0-33.0); MEAN CORPUSCULAR HGB CONC 30.8 g/dL (32.0-36.0); MEAN CORPUSCULAR VOLUME 69.2 fL (79-99); MONOCYTES % (AUTO) 3.1 % (3.0-13.0); PLATELET COUNT (AUTO) 338 K/uL (130-400); RED BLOOD CELL COUNT(AUTO) 5.18 MIL/uL (4.50-6.20); RED CELL DISTRIBUTION WIDTH 26.3 % (11.0-15.5); WHITE BLOOD COUNT (AUTO) 19.9 K/uL (4.8-10.8)
[2018-01-06 05:10] LABS: CREATININE 1.5 mg/dL (0.5-1.5); POTASSIUM 4.2 mmol/L (3.5-5.1)
[2018-01-06] MEDS: LEVOTHYROXINE 100 MCG TABLET PO SCH (06:04)
[2018-01-06] MEDS ORDERED: ISOS30TA6 PO (07:32)
[2018-01-06] MEDS ORDERED: CLOTRIMAZOLE 30 GM CREAM.GM. TP SCH (07:35)
[2018-01-06 07:59] VITALS: BP 129/83
[2018-01-06] MEDS: CLOPIDOGREL BISULFATE 75 MG TAB PO SCH (08:53)
[2018-01-06] MEDS: METOPROLOL TARTRATE 25 MG TAB PO SCH (08:54)
[2018-01-06] MEDS: PANTOPRAZOLE SODIUM 40 MG TABLET.DR PO SCH (08:54)
[2018-01-06] MEDS: DULOXETINE HCL 30 MG CAP PO SCH (08:54)
[2018-01-06] MEDS: GABAPENTIN 300 MG CAPSULE PO SCH (08:54)
[2018-01-06] MEDS: Zonisamide 25 MG PO SCH (08:55)
[2018-01-06] MEDS: ASPIRIN 81MG TAB.CHEW PO SCH (08:55)
[2018-01-06] MEDS ORDERED: ISOSORBIDE MONO 30MG TAB SR PO SCH (09:00)
[2018-01-06 11:15] VITALS: BP 130/92
[2018-01-06] MEDS ORDERED: INSULIN HUMULIN R 100 UNIT/ML 3ML SQ SCH (12:00)
[2018-01-06] MEDS ORDERED: GLUCAGON 1MG KIT 1 MG ML IM PRN (12:00)
[2018-01-06] MEDS ORDERED: DEXTROSE 50%-WATER 50 ML DISP.SYRIN IV PRN (12:00)
== END 2018-01-06 13:58 | disposition home or self-care (01) | DRG 287 ==
LOC: EDH 04:08 → EDHIP 06:36 → OBSVTOIN 06:36 → 2BH 08:15 → 3AH 10:46
PROVIDERS: ADMIT Internal Medicine; ATTEND Internal Medicine
PROC: 4A023N7 Measurement of Cardiac Sampling and Pressure, Left Heart, Percutaneous Approach (ICD-10-PCS; principal; 2018-01-05)
PROC: B2111ZZ Fluoroscopy of Multiple Coronary Arteries using Low Osmolar Contrast (ICD-10-PCS; 2018-01-05)
PROC: B2141ZZ Fluoroscopy of Right Heart using Low Osmolar Contrast (ICD-10-PCS; 2018-01-05)
DX: I25.110 Atherosclerotic heart disease of native coronary artery with unstable angina pectoris (principal); J98.11 Atelectasis; D72.829 Elevated white blood cell count, unspecified; E11.65 Type 2 diabetes mellitus with hyperglycemia; D64.9 Anemia, unspecified; F32.9 Major depressive disorder, single episode, unspecified; J44.9 Chronic obstructive pulmonary disease, unspecified; E03.9 Hypothyroidism, unspecified; E66.9 Obesity, unspecified; E78.5 Hyperlipidemia, unspecified; I10 Essential (primary) hypertension; N40.0 Benign prostatic hyperplasia without lower urinary tract symptoms; Z96.612 Presence of left artificial shoulder joint; Z68.29 Body mass index [BMI] 29.0-29.9, adult; Z95.5 Presence of coronary angioplasty implant and graft; I25.2 Old myocardial infarction; Z91.041 Radiographic dye allergy status; Z79.02 Long term (current) use of antithrombotics/antiplatelets; Z79.82 Long term (current) use of aspirin; Z79.899 Other long term (current) drug therapy; Z87.891 Personal history of nicotine dependence; Z85.820 Personal history of malignant melanoma of skin; Z88.8 Allergy status to other drugs, medicaments and biological substances; Z82.49 Family history of ischemic heart disease and other diseases of the circulatory system
CPT/HCPCS: 36415; 71045; 71046; 71250; 80048; 80053; 80061; 80076; 81001; 81003; 82550; 82553; 82948; 83036; 83540; 83550; 83735; 83874; 83880; 84484; 85025; 85027; 85610; 85730; 93005; 93458; C1760; C1894; J1644; J1650; J1815; J2930; J3490; J7030; Q0163; Q9967

== ENCOUNTER 2018-06-22 09:18 | Day surgery (SDC) | payer OTHER ==
[~2018-06-22] VITALS: Ht 175.3 cm; Wt 90.3 kg
[~2018-06-22 09:18] MED LIST changes: +GABA-531 PO; +ISOS30TA6 PO; +SODIUM CHLORIDE 0.9% 1000ML 1,000 ML IV ONE
[2018-06-22] MEDS ORDERED: diltiazem (12:37)
[2018-06-22] MEDS ORDERED: miralax (12:37)
[2018-06-22] MEDS ORDERED: LORA0.5T2 PO (12:37)
[2018-06-22 12:50] VITALS: BP 139/71
[2018-06-22] MEDS ORDERED: PROPOFOL 10 MG/ML 20ML VIAL IV ONE (12:52)
[2018-06-22 13:22] VITALS: BP 129/74
[2018-06-22 13:27] VITALS: BP 141/77
[2018-06-22 13:32] VITALS: BP 134/73
[2018-06-22 13:37] VITALS: BP 136/82
[2018-06-22 13:45] VITALS: BP 137/80
== END 2018-06-22 13:58 | disposition home or self-care (01) ==
LOC: DAH 09:18 → ENDO 09:18
PROVIDERS: ATTEND Internal Medicine
DX: D12.2 Benign neoplasm of ascending colon (principal); D50.9 Iron deficiency anemia, unspecified; K57.30 Diverticulosis of large intestine without perforation or abscess without bleeding; K64.0 First degree hemorrhoids; I10 Essential (primary) hypertension; I25.10 Atherosclerotic heart disease of native coronary artery without angina pectoris; F41.9 Anxiety disorder, unspecified; E03.9 Hypothyroidism, unspecified; M19.90 Unspecified osteoarthritis, unspecified site; C20 Malignant neoplasm of rectum
CPT/HCPCS: 45380; 45381; 45385; 88305; A4606; J2704; J7030

== ENCOUNTER 2018-07-09 07:56 | Day surgery (SDC) | payer OTHER ==
[~2018-07-09] VITALS: Ht 177.8 cm; Wt 86.2 kg
[~2018-07-09 07:56] MED LIST changes: -CLOP75TA14 PO; -GABA-531 PO; +LORA0.5T2 PO; +diltiazem; +miralax
[2018-07-09 08:13] VITALS: BP 138/63
[2018-07-09] MEDS ORDERED: PANT40TA25 PO (08:38)
[2018-07-09] MEDS ORDERED: PROPOFOL 1000 MG/100 ML 100 ML IV ONE (09:02)
[2018-07-09] MEDS ORDERED: LIDOCAINE HCL 2% 20ML ONE (09:03)
[2018-07-09 09:06] VITALS: BP 105/58
[2018-07-09 09:11] VITALS: BP 106/60
[2018-07-09 09:16] VITALS: BP 94/60
[2018-07-09 09:21] VITALS: BP 103/56
[2018-07-09 09:28] VITALS: BP 107/56
== END 2018-07-09 09:40 | disposition home or self-care (01) ==
LOC: DAH 07:56 → ENDO 07:56
PROVIDERS: ATTEND Internal Medicine Gastroenterology
DX: C21.8 Malignant neoplasm of overlapping sites of rectum, anus and anal canal (principal); K62.89 Other specified diseases of anus and rectum; I10 Essential (primary) hypertension; F41.9 Anxiety disorder, unspecified; F32.9 Major depressive disorder, single episode, unspecified; E03.9 Hypothyroidism, unspecified; M19.90 Unspecified osteoarthritis, unspecified site; I25.10 Atherosclerotic heart disease of native coronary artery without angina pectoris; K27.9 Peptic ulcer, site unspecified, unspecified as acute or chronic, without hemorrhage or perforation; Z98.890 Other specified postprocedural states; Z95.5 Presence of coronary angioplasty implant and graft; Z79.899 Other long term (current) drug therapy
CPT/HCPCS: 45341; 93005; A4606; J2704; J3490; J7030; 45391

== ENCOUNTER → 2018-07-12 | Outpatient (CLI) | payer OTHER ==
[~2018-07-12] MED LIST changes: -BENA20TA10 PO; -ESOM20CA31 PO; -LORA0.5T2 PO; +PANT40TA25 PO; -SODIUM CHLORIDE 0.9% 1000ML 1,000 ML IV ONE; -diltiazem; -miralax
[2018-07-12 11:08] LABS: CREATININE 1.3 mg/dL (0.5-1.5)
== END | disposition home or self-care (01) ==
LOC: LAB 10:13
PROVIDERS: ATTEND Internal Medicine Gastroenterology
DX: C20 Malignant neoplasm of rectum (principal)
CPT/HCPCS: 36415; 82565; 84520

== ENCOUNTER → 2018-07-23 | Outpatient (CLI) | payer OTHER ==
[~2018-07-23] MED LIST changes: +IOHEXOL-350 75 ML VIAL IV ONE
== END | disposition home or self-care (01) ==
LOC: RAH 07:59
PROVIDERS: ATTEND Internal Medicine
DX: I71.4 Abdominal aortic aneurysm, without rupture (principal); K80.20 Calculus of gallbladder without cholecystitis without obstruction; Z85.048 Personal history of other malignant neoplasm of rectum, rectosigmoid junction, and anus; Z91.041 Radiographic dye allergy status
CPT/HCPCS: 71270; 74178; Q9967

== ENCOUNTER 2019-09-30 08:18 | Day surgery (SDC) | payer OTHER ==
[~2019-09-30] VITALS: Ht 177.8 cm; Wt 87.5 kg
[~2019-09-30 08:18] MED LIST changes: -DULO60CA63 PO; +DULO60CA64 PO; -IOHEXOL-350 75 ML VIAL IV ONE; -PANT40TA25 PO; +PANT40TA54 PO; +SODIUM CHLORIDE 0.9% 1000ML 1,000 ML IV ONE; +ZONI25CA14 PO; -ZONI25CA3 PO
[2019-09-30] MEDS ORDERED: LOSA100T58 PO (09:37)
[2019-09-30] MEDS ORDERED: HYDR12.54 PO (09:37)
[2019-09-30] MEDS ORDERED: EMPA10TA PO (09:37)
[2019-09-30] MEDS ORDERED: PROPOFOL 10 MG/ML 20ML VIAL IV ONE (10:20)
[2019-09-30 10:35] VITALS: BP 116/61
[2019-09-30 10:40] VITALS: BP 118/60
[2019-09-30 10:45] VITALS: BP 108/63
[2019-09-30 10:50] VITALS: BP 109/63
[2019-09-30 10:55] VITALS: BP 121/63
== END 2019-09-30 11:10 | disposition home or self-care (01) ==
LOC: ENDO 08:18
PROVIDERS: ATTEND Internal Medicine Gastroenterology
DX: C20 Malignant neoplasm of rectum (principal); K62.89 Other specified diseases of anus and rectum
CPT/HCPCS: 36415; 45330; 82948; 93005; A4215; A4221; A4222; A4223; A4606; A4615; A4657; A4663; J2704; J7030; U0003

== ENCOUNTER 2022-03-19 19:50 | Inpatient (IN) | payer MEDICARE, OTHER ==
[~2022-03-19] VITALS: Ht 167.6 cm; Wt 76.5 kg
[~2022-03-19 19:50] MED LIST changes: -ASPI-1005 PO; +EMPA10TA PO; +HYDR12.54 PO; -ISOS30TA6 PO; +ISOS30TA92 PO; +LOSA100T58 PO; -PANT40TA54 PO; -SODIUM CHLORIDE 0.9% 1000ML 1,000 ML IV ONE
[2022-03-19 20:38] LABS: BASOPHILS % (AUTO) 0.5 % (0.0-5.0); EOSINOPHILS % (AUTO) 3.8 % (0.0-8.0); HEMATOCRIT 43.8 % (42-54); LYMPHOCYTES % (AUTO) 9.4 % (21.0-51.0); MEAN CORPUSCULAR HEMOGLOBIN 28.3 pg (27.0-33.0); MEAN CORPUSCULAR HGB CONC 33.1 g/dL (32.0-36.0); MEAN CORPUSCULAR VOLUME 85.5 fL (79-99); MONOCYTES % (AUTO) 8.8 % (3.0-13.0); NEUTROPHILS % (AUTO) 77.1 % (40.0-77.0); PLATELET COUNT (AUTO) 246 K/uL (130-400); RED BLOOD CELL COUNT(AUTO) 5.12 MIL/uL (4.50-6.20); WHITE BLOOD COUNT (AUTO) 9.8 K/uL (4.8-10.8)
[2022-03-19 20:52] LABS: INR 1.21 (0.85-1.15)
[2022-03-19 20:53] LABS: PARTIAL THROMBOPLASTIN TIME 29.2 SEC (26.3-35.5)
[2022-03-19 20:57] LABS: ALBUMIN 3.3 g/dL (3.5-5.0); CREATININE 1.3 mg/dL (0.5-1.5); POTASSIUM 4.3 mmol/L (3.5-5.1)
[2022-03-19] MEDS ORDERED: ONDANSETRON 4MG INJ IV PRN (23:00)
[2022-03-19] MEDS ORDERED: ACETAMINOPHEN 325 MG TAB PO PRN (23:00)
[2022-03-19] MEDS ORDERED: MORPHINE 2 MG SYG IV PRN (23:00)
[2022-03-19] MEDS ORDERED: MORPHINE 4 MG SYG IV PRN (23:00)
[2022-03-19] MEDS ORDERED: ASPI-1197 PO (23:24)
[2022-03-19] MEDS ORDERED: LEVE10006 PO (23:24)
[2022-03-19] MEDS ORDERED: LOSA50TA64 PO (23:24)
[2022-03-19] MEDS ORDERED: LEVO100T12 PO (23:24)
[2022-03-19] MEDS ORDERED: EMPA25TA PO (23:24)
[2022-03-19] MEDS ORDERED: BREX0.5T PO (23:24)
[2022-03-19] MEDS ORDERED: CLOP75TA32 PO (23:24)
[2022-03-19] MEDS ORDERED: DULO30CA52 PO (23:24)
[2022-03-19] MEDS ORDERED: CARV6.25 PO (23:24)
[2022-03-19] MEDS ORDERED: ZONI25CA14 PO (23:24)
[2022-03-19] MEDS ORDERED: TRAZ-185 PO (23:24)
[2022-03-19] MEDS ORDERED: ATOR40TA71 PO (23:24)
[2022-03-19] MEDS: LACTATED RINGERS 1000ML 1,000 ML IV SCH (23:34)
[2022-03-20 02:30] VITALS: BP 175/80
[2022-03-20 05:43] LABS: BASOPHILS % (AUTO) 0.4 % (0.0-5.0); EOSINOPHILS % (AUTO) 5.8 % (0.0-8.0); LYMPHOCYTES % (AUTO) 9.1 % (21.0-51.0); MEAN CORPUSCULAR HGB CONC 31.6 g/dL (32.0-36.0); MEAN CORPUSCULAR VOLUME 88.5 fL (79-99); MONOCYTES % (AUTO) 8.6 % (3.0-13.0); NEUTROPHILS % (AUTO) 75.5 % (40.0-77.0); PLATELET COUNT (AUTO) 232 K/uL (130-400); RED BLOOD CELL COUNT(AUTO) 4.86 MIL/uL (4.50-6.20); RED CELL DISTRIBUTION WIDTH 13.9 % (11.0-15.5); WHITE BLOOD COUNT (AUTO) 8.2 K/uL (4.8-10.8)
[2022-03-20 06:08] LABS: CREATININE 1.1 mg/dL (0.5-1.5); MAGNESIUM 2.2 mg/dL (1.80-2.40); THYROID STIMULATING HORMONE 2.99 uIU/mL (0.36-3.74)
[2022-03-20] MEDS: LEVOTHYROXINE 100 MCG TABLET PO SCH (06:36)
[2022-03-20 08:00] VITALS: BP 148/87
[2022-03-20] MEDS: ZONISAMIDE 25 MG PO SCH ×3 (09:00→20:54)
[2022-03-20] MEDS: FAMOTIDINE 20MG VIAL IV SCH (09:31)
[2022-03-20] MEDS: CARVEDILOL 6.25 MG TABLET PO SCH ×2 (09:34→17:04)
[2022-03-20] MEDS: DULOXETINE HCL 30 MG CAP PO SCH ×2 (09:35→20:47)
[2022-03-20] MEDS: LOSARTAN 50 MG TABLET PO SCH (09:35)
[2022-03-20] MEDS: LEVETIRACETAM 500 MG TABLET PO SCH ×2 (09:35→20:48)
[2022-03-20 12:00] VITALS: BP 152/82
[2022-03-20] MEDS: LACTATED RINGERS 1000ML 1,000 ML IV SCH ×2 (15:40→20:48)
[2022-03-20 16:00] VITALS: BP 157/87
[2022-03-20] MEDS: NYSTATIN 15 GM POWDER TP SCH ×2 (16:00→20:48)
[2022-03-20 19:42] VITALS: BP 134/71
[2022-03-20] MEDS: TRAZODONE HCL 50 MG TAB PO SCH (20:47)
[2022-03-20] MEDS: ATORVASTATIN 40 MG TABLET PO SCH (20:49)
[2022-03-20] MEDS: BREXPIPRAZOLE 0.5 MG PO SCH (20:54)
[2022-03-21] VITALS (7 sets, daily range): BP systolic 137–186; BP diastolic 75–101
[2022-03-21 04:57] LABS: BASOPHILS % (AUTO) 0.5 % (0.0-5.0); EOSINOPHILS % (AUTO) 5.2 % (0.0-8.0); HEMATOCRIT 43.1 % (42-54); MEAN CORPUSCULAR HEMOGLOBIN 28.1 pg (27.0-33.0); MEAN CORPUSCULAR HGB CONC 32.3 g/dL (32.0-36.0); MEAN CORPUSCULAR VOLUME 87.2 fL (79-99); MONOCYTES % (AUTO) 8.6 % (3.0-13.0); NEUTROPHILS % (AUTO) 76.1 % (40.0-77.0); PLATELET COUNT (AUTO) 245 K/uL (130-400); RED BLOOD CELL COUNT(AUTO) 4.94 MIL/uL (4.50-6.20); RED CELL DISTRIBUTION WIDTH 13.9 % (11.0-15.5); WHITE BLOOD COUNT (AUTO) 11.1 K/uL (4.8-10.8)
[2022-03-21 05:25] LABS: MAGNESIUM 2.2 mg/dL (1.80-2.40); PHOSPHORUS 3.3 mg/dL (2.5-4.9); POTASSIUM 3.7 mmol/L (3.5-5.1)
[2022-03-21] MEDS: NYSTATIN 15 GM POWDER TP SCH ×3 (05:46→22:34)
[2022-03-21] MEDS: LEVOTHYROXINE 100 MCG TABLET PO SCH (05:46)
[2022-03-21] MEDS: ZONISAMIDE 25 MG PO SCH ×3 (08:14→21:00)
[2022-03-21] MEDS ORDERED: IOHEXOL-350 50ML VIAL IV ONE (08:14)
[2022-03-21] MEDS: LEVETIRACETAM 500 MG TABLET PO SCH ×2 (08:21→22:34)
[2022-03-21] MEDS: LOSARTAN 50 MG TABLET PO SCH (08:21)
[2022-03-21] MEDS: DULOXETINE HCL 30 MG CAP PO SCH ×2 (08:21→22:34)
[2022-03-21] MEDS: FAMOTIDINE 20MG VIAL IV SCH (08:21)
[2022-03-21] MEDS: CARVEDILOL 6.25 MG TABLET PO SCH ×2 (08:21→17:08)
[2022-03-21] MEDS ORDERED: LIDOCAINE HCL-MPF 1% 2ML VIAL IV PRN (08:30)
[2022-03-21] MEDS ORDERED: POTASSIUM CHLORIDE 10% ELIXIR 20 MEQ/15 ML UDCUP PO PRN (08:30)
[2022-03-21] MEDS ORDERED: POTASSIUM CHLORIDE 20MEQ/100ML 100 ML IV PRN (08:30)
[2022-03-21] MEDS: KCL 20 MEQ ERTAB PO PRN ×2 (08:45→14:53)
[2022-03-21] MEDS ORDERED: LORA0.5T83 PO (13:13)
[2022-03-21] MEDS ORDERED: LORAZEPAM 0.5 MG TABLET PO PRN (14:00)
[2022-03-21] MEDS: LABETALOL 20MG VIAL IV PRN ×2 (17:09→23:44)
[2022-03-21] MEDS: BREXPIPRAZOLE 0.5 MG PO SCH (21:00)
[2022-03-21] MEDS: LORAZEPAM 0.5 MG TABLET PO SCH (22:33)
[2022-03-21] MEDS: TRAZODONE HCL 50 MG TAB PO SCH (22:34)
[2022-03-21] MEDS: ATORVASTATIN 40 MG TABLET PO SCH (22:34)
[2022-03-21] MEDS: RIVASTIGMINE 4.6MG/24HR PATCH TD SCH (22:34)
[2022-03-22 04:00] VITALS: BP 168/96
[2022-03-22] MEDS: NYSTATIN 15 GM POWDER TP SCH ×3 (05:39→20:39)
[2022-03-22 06:02] LABS: BASOPHILS % (AUTO) 0.4 % (0.0-5.0); EOSINOPHILS % (AUTO) 2.1 % (0.0-8.0); HEMATOCRIT 47.3 % (42-54); LYMPHOCYTES % (AUTO) 7.1 % (21.0-51.0); MEAN CORPUSCULAR HEMOGLOBIN 27.8 pg (27.0-33.0); MEAN CORPUSCULAR HGB CONC 31.9 g/dL (32.0-36.0); MEAN CORPUSCULAR VOLUME 87.1 fL (79-99); MONOCYTES % (AUTO) 7.2 % (3.0-13.0); NEUTROPHILS % (AUTO) 82.7 % (40.0-77.0); PLATELET COUNT (AUTO) 284 K/uL (130-400); RED BLOOD CELL COUNT(AUTO) 5.43 MIL/uL (4.50-6.20); WHITE BLOOD COUNT (AUTO) 12.1 K/uL (4.8-10.8)
[2022-03-22] MEDS: LEVOTHYROXINE 100 MCG TABLET PO SCH (06:54)
[2022-03-22 07:26] VITALS: BP 150/101
[2022-03-22] MEDS: ZONISAMIDE 25 MG PO SCH ×3 (09:00→20:39)
[2022-03-22] MEDS: CARVEDILOL 6.25 MG TABLET PO SCH ×2 (09:12→16:50)
[2022-03-22] MEDS: LEVETIRACETAM 500 MG TABLET PO SCH ×2 (09:12→20:38)
[2022-03-22] MEDS: LORAZEPAM 0.5 MG TABLET PO SCH ×3 (09:12→20:38)
[2022-03-22] MEDS: FAMOTIDINE 20MG VIAL IV SCH (09:12)
[2022-03-22] MEDS: DULOXETINE HCL 30 MG CAP PO SCH ×2 (09:12→20:38)
[2022-03-22] MEDS: LOSARTAN 50 MG TABLET PO SCH (09:13)
[2022-03-22] MEDS: RIVASTIGMINE 4.6MG/24HR PATCH TD SCH (09:14)
[2022-03-22 11:16] VITALS: BP 169/90
[2022-03-22] MEDS: AMLODIPINE 5 MG TAB PO SCH (14:49)
[2022-03-22 16:00] VITALS: BP 145/94
[2022-03-22 20:00] VITALS: BP 123/75
[2022-03-22] MEDS: ATORVASTATIN 40 MG TABLET PO SCH (20:38)
[2022-03-22] MEDS: TRAZODONE HCL 50 MG TAB PO SCH (20:38)
[2022-03-22] MEDS: BREXPIPRAZOLE 0.5 MG PO SCH (20:39)
[2022-03-23] VITALS: BP 136/77
[2022-03-23 04:00] VITALS: BP 146/84
[2022-03-23 04:20] LABS: BASOPHILS % (AUTO) 0.5 % (0.0-5.0); EOSINOPHILS % (AUTO) 3.5 % (0.0-8.0); HEMATOCRIT 44.2 % (42-54); LYMPHOCYTES % (AUTO) 9.3 % (21.0-51.0); MEAN CORPUSCULAR HEMOGLOBIN 27.9 pg (27.0-33.0); MEAN CORPUSCULAR HGB CONC 33.3 g/dL (32.0-36.0); MONOCYTES % (AUTO) 8.6 % (3.0-13.0); NEUTROPHILS % (AUTO) 77.7 % (40.0-77.0); PLATELET COUNT (AUTO) 277 K/uL (130-400); RED BLOOD CELL COUNT(AUTO) 5.26 MIL/uL (4.50-6.20); RED CELL DISTRIBUTION WIDTH 14.1 % (11.0-15.5); WHITE BLOOD COUNT (AUTO) 9.8 K/uL (4.8-10.8)
[2022-03-23 04:25] LABS: POTASSIUM 3.7 mmol/L (3.5-5.1)
[2022-03-23] MEDS: NYSTATIN 15 GM POWDER TP SCH ×3 (05:53→23:50)
[2022-03-23] MEDS: LEVOTHYROXINE 100 MCG TABLET PO SCH (05:53)
[2022-03-23 07:30] VITALS: BP 159/94
[2022-03-23] MEDS: AMLODIPINE 5 MG TAB PO SCH (08:58)
[2022-03-23] MEDS: CARVEDILOL 6.25 MG TABLET PO SCH ×2 (08:58→17:34)
[2022-03-23] MEDS: LORAZEPAM 0.5 MG TABLET PO SCH ×3 (08:58→23:47)
[2022-03-23] MEDS: LEVETIRACETAM 500 MG TABLET PO SCH ×2 (08:59→23:47)
[2022-03-23] MEDS: LOSARTAN 50 MG TABLET PO SCH (08:59)
[2022-03-23] MEDS: FAMOTIDINE 20MG VIAL IV SCH (08:59)
[2022-03-23] MEDS: DULOXETINE HCL 30 MG CAP PO SCH ×2 (08:59→23:48)
[2022-03-23] MEDS: ZONISAMIDE 25 MG PO SCH ×3 (09:00→21:00)
[2022-03-23] MEDS: RIVASTIGMINE 4.6MG/24HR PATCH TD SCH (09:00)
[2022-03-23 11:00] VITALS: BP 123/79
[2022-03-23 16:00] VITALS: BP 129/71
[2022-03-23 20:00] VITALS: BP 123/62
[2022-03-23] MEDS: ATORVASTATIN 40 MG TABLET PO SCH (23:47)
[2022-03-23] MEDS: TRAZODONE HCL 50 MG TAB PO SCH (23:48)
[2022-03-23] MEDS: BREXPIPRAZOLE 0.5 MG PO SCH (23:49)
[2022-03-24] VITALS (7 sets, daily range): BP systolic 100–142; BP diastolic 59–75
[2022-03-24] MEDS: LEVOTHYROXINE 100 MCG TABLET PO SCH (06:16)
[2022-03-24] MEDS: NYSTATIN 15 GM POWDER TP SCH ×3 (06:17→22:07)
[2022-03-24] MEDS: LEVETIRACETAM 500 MG TABLET PO SCH ×2 (08:09→22:02)
[2022-03-24] MEDS: LOSARTAN 50 MG TABLET PO SCH (08:10)
[2022-03-24] MEDS: CARVEDILOL 6.25 MG TABLET PO SCH ×2 (08:10→17:56)
[2022-03-24] MEDS: DULOXETINE HCL 30 MG CAP PO SCH ×2 (08:10→21:00)
[2022-03-24] MEDS: LORAZEPAM 0.5 MG TABLET PO SCH ×3 (08:10→22:02)
[2022-03-24] MEDS: FAMOTIDINE 20MG VIAL IV SCH (08:11)
[2022-03-24] MEDS: AMLODIPINE 5 MG TAB PO SCH (08:11)
[2022-03-24] MEDS: ZONISAMIDE 25 MG PO SCH ×3 (08:11→21:00)
[2022-03-24] MEDS: RIVASTIGMINE 4.6MG/24HR PATCH TD SCH (15:11)
[2022-03-24] MEDS: BREXPIPRAZOLE 0.5 MG PO SCH (21:00)
[2022-03-24] MEDS: TRAZODONE HCL 50 MG TAB PO SCH (22:02)
[2022-03-24] MEDS: ATORVASTATIN 40 MG TABLET PO SCH (22:02)
[2022-03-25] MEDS ORDERED: DULO60CA64 PO (02:32)
[2022-03-25 03:55] VITALS: BP 131/85
[2022-03-25] MEDS: NYSTATIN 15 GM POWDER TP SCH ×3 (05:56→20:51)
[2022-03-25 08:00] VITALS: BP 151/77
[2022-03-25] MEDS: ZONISAMIDE 25 MG PO SCH ×3 (09:00→20:52)
[2022-03-25] MEDS: LEVOTHYROXINE 100 MCG TABLET PO SCH (09:12)
[2022-03-25] MEDS: AMLODIPINE 5 MG TAB PO SCH (09:12)
[2022-03-25] MEDS: DULOXETINE HCL 30 MG CAP PO SCH ×2 (09:12→20:48)
[2022-03-25] MEDS: LORAZEPAM 0.5 MG TABLET PO SCH ×2 (09:12→20:48)
[2022-03-25] MEDS: LEVETIRACETAM 500 MG TABLET PO SCH ×2 (09:12→20:48)
[2022-03-25] MEDS: LOSARTAN 50 MG TABLET PO SCH (09:13)
[2022-03-25] MEDS: FAMOTIDINE 20MG VIAL IV SCH (09:13)
[2022-03-25] MEDS: RIVASTIGMINE 4.6MG/24HR PATCH TD SCH (09:14)
[2022-03-25] MEDS: CARVEDILOL 6.25 MG TABLET PO SCH ×2 (09:22→17:00)
[2022-03-25 12:00] VITALS: BP 119/84
[2022-03-25] MEDS ORDERED: LORAZEPAM 0.5 MG TABLET PO PRN (14:30)
[2022-03-25 16:00] VITALS: BP 133/88
[2022-03-25 20:28] VITALS: BP 121/76
[2022-03-25] MEDS: ATORVASTATIN 40 MG TABLET PO SCH (20:48)
[2022-03-25] MEDS: TRAZODONE HCL 50 MG TAB PO SCH (20:49)
[2022-03-25] MEDS: BREXPIPRAZOLE 0.5 MG PO SCH (20:50)
[2022-03-25 23:42] VITALS: BP 140/84
[2022-03-26 03:21] VITALS: BP 157/82
[2022-03-26 04:43] LABS: BASOPHILS % (AUTO) 0.4 % (0.0-5.0); EOSINOPHILS % (AUTO) 3.5 % (0.0-8.0); HEMATOCRIT 48.2 % (42-54); LYMPHOCYTES % (AUTO) 7.4 % (21.0-51.0); MEAN CORPUSCULAR HEMOGLOBIN 27.7 pg (27.0-33.0); MEAN CORPUSCULAR VOLUME 86.8 fL (79-99); MONOCYTES % (AUTO) 6.8 % (3.0-13.0); NEUTROPHILS % (AUTO) 81.3 % (40.0-77.0); PLATELET COUNT (AUTO) 267 K/uL (130-400); RED BLOOD CELL COUNT(AUTO) 5.55 MIL/uL (4.50-6.20); RED CELL DISTRIBUTION WIDTH 13.9 % (11.0-15.5); WHITE BLOOD COUNT (AUTO) 12.6 K/uL (4.8-10.8)
[2022-03-26 04:55] LABS: CREATININE 1.1 mg/dL (0.5-1.5); MAGNESIUM 2.1 mg/dL (1.80-2.40)
[2022-03-26] MEDS: NYSTATIN 15 GM POWDER TP SCH ×3 (06:29→21:49)
[2022-03-26] MEDS: LEVOTHYROXINE 100 MCG TABLET PO SCH (06:55)
[2022-03-26 08:30] VITALS: BP 133/88
[2022-03-26] MEDS: ZONISAMIDE 25 MG PO SCH ×3 (09:00→21:00)
[2022-03-26] MEDS: DULOXETINE HCL 30 MG CAP PO SCH ×2 (10:22→21:48)
[2022-03-26] MEDS: LEVETIRACETAM 500 MG TABLET PO SCH ×2 (10:22→21:48)
[2022-03-26] MEDS: RIVASTIGMINE 4.6MG/24HR PATCH TD SCH (10:22)
[2022-03-26] MEDS: AMLODIPINE 5 MG TAB PO SCH (10:22)
[2022-03-26] MEDS: LORAZEPAM 0.5 MG TABLET PO SCH ×2 (10:23→21:48)
[2022-03-26] MEDS: LOSARTAN 50 MG TABLET PO SCH (10:23)
[2022-03-26] MEDS: FAMOTIDINE 20MG VIAL IV SCH (10:23)
[2022-03-26 12:00] VITALS: BP 125/86
[2022-03-26 15:45] VITALS: BP 133/81
[2022-03-26] MEDS: CARVEDILOL 6.25 MG TABLET PO SCH (17:00)
[2022-03-26 20:05] VITALS: BP 145/77
[2022-03-26] MEDS: ATORVASTATIN 40 MG TABLET PO SCH (21:48)
[2022-03-26] MEDS: TRAZODONE HCL 50 MG TAB PO SCH (21:48)
[2022-03-26] MEDS: BREXPIPRAZOLE 0.5 MG PO SCH (21:50)
[2022-03-27] VITALS (7 sets, daily range): BP systolic 105–127; BP diastolic 60–75
[2022-03-27] MEDS: LEVOTHYROXINE 100 MCG TABLET PO SCH (06:29)
[2022-03-27] MEDS: NYSTATIN 15 GM POWDER TP SCH ×3 (06:30→21:31)
[2022-03-27] MEDS: CARVEDILOL 6.25 MG TABLET PO SCH ×2 (08:00→11:04)
[2022-03-27] MEDS: ZONISAMIDE 25 MG PO SCH ×3 (08:32→21:00)
[2022-03-27] MEDS: LEVETIRACETAM 500 MG TABLET PO SCH ×2 (11:02→21:29)
[2022-03-27] MEDS: FAMOTIDINE 20MG VIAL IV SCH (11:02)
[2022-03-27] MEDS: DULOXETINE HCL 30 MG CAP PO SCH ×2 (11:02→21:30)
[2022-03-27] MEDS: LORAZEPAM 0.5 MG TABLET PO SCH ×2 (11:02→21:30)
[2022-03-27] MEDS: LOSARTAN 50 MG TABLET PO SCH (11:03)
[2022-03-27] MEDS: AMLODIPINE 5 MG TAB PO SCH (11:03)
[2022-03-27] MEDS: RIVASTIGMINE 4.6MG/24HR PATCH TD SCH (11:05)
[2022-03-27] MEDS ORDERED: CARVEDILOL 6.25 MG TABLET PO SCH (21:00)
[2022-03-27] MEDS: BREXPIPRAZOLE 0.5 MG PO SCH (21:00)
[2022-03-27] MEDS: TRAZODONE HCL 50 MG TAB PO SCH (21:29)
[2022-03-27] MEDS: ATORVASTATIN 40 MG TABLET PO SCH (21:30)
== END 2022-03-27 22:12 | DRG 66 ==
LOC: EDH 19:50 → EDHIP 22:36 → 3CH 03-20 02:08
PROVIDERS: ADMIT Internal Medicine; ATTEND Internal Medicine
DX: I62.00 Nontraumatic subdural hemorrhage, unspecified (principal); I25.10 Atherosclerotic heart disease of native coronary artery without angina pectoris; E78.00 Pure hypercholesterolemia, unspecified; I10 Essential (primary) hypertension; Z20.822 Contact with and (suspected) exposure to COVID-19; E03.9 Hypothyroidism, unspecified; F32.A Depression, unspecified; F41.1 Generalized anxiety disorder; F17.210 Nicotine dependence, cigarettes, uncomplicated; N40.0 Benign prostatic hyperplasia without lower urinary tract symptoms; R29.6 Repeated falls; Z86.74 Personal history of sudden cardiac arrest; Z86.73 Personal history of transient ischemic attack (TIA), and cerebral infarction without residual deficits; Z85.820 Personal history of malignant melanoma of skin; Z85.048 Personal history of other malignant neoplasm of rectum, rectosigmoid junction, and anus; I25.2 Old myocardial infarction; Z79.899 Other long term (current) drug therapy; Z79.82 Long term (current) use of aspirin; Z95.5 Presence of coronary angioplasty implant and graft; Z79.02 Long term (current) use of antithrombotics/antiplatelets; Z51.5 Encounter for palliative care; G93.89 Other specified disorders of brain
CPT/HCPCS: 36415; 70450; 70470; 71045; 80048; 80053; 80177; 83735; 84100; 84443; 84484; 85025; 85610; 85730; 86850; 86900; 86901; 93005; 97039; 99291; G0378; J3490; J7120; Q9967